=== PATIENT | male | born 1960 | race Caucasian/White ===

== ENCOUNTER → 2016-10-03 | Outpatient (CLI) | payer OTHER ==
--- NOTE | 2016-10-04 13:31 | RAD ---
EXAM DESCRIPTION: Hip,Left 2 Views left CLINICAL HISTORY: 56 years, Male, LEFT HIP PAIN COMPARISON: FINDINGS: Three views that demonstrate fracture or dislocation. Mild narrowing superolaterally with spurring. Surgical clips over the scrotal region. IMPRESSION: Mild degenerative change without fracture or dislocation Electronically signed by: Ciaran Arevalo MD 10/04/2016 1:30 PM CDT
--- NOTE | 2016-10-04 13:40 | RAD ---
EXAM DESCRIPTION: Hip,Right 2 Views CLINICAL HISTORY: 56 years, Male, RIGHT HIP PAIN COMPARISON: FINDINGS: Two views of the right hip do not show fracture or dislocation. Mild narrowing superolaterally with spurring. Some calcification at the greater trochanter may be due to bursitis IMPRESSION: Mild degenerative change without fracture or dislocation. Calcification at the greater trochanter may be due to bursitis Electronically signed by: Ciaran Arevalo MD 10/04/2016 1:38 PM CDT
== END ==
LOC: RAD 16:03
PROVIDERS: ATTEND Family Medicine
DX: M25.551 Pain in right hip (principal); M25.552 Pain in left hip

== ENCOUNTER → 2016-10-11 | Outpatient (CLI) | payer OTHER ==
--- NOTE | 2016-10-12 08:12 | MRI ---
Study: MRI of the Left Hip. Indication: PAIN Technique: Multiplanar, multi sequence MRI of the left hip was obtained without intravenous contrast. Comparison: None. FINDINGS: Free edge and undersurface tearing noted throughout the anterior superior left hip labrum. Areas of grade 2 and mild grade 3 chondral thinning throughout the left hip joint with minimal acetabular roof osteophyte formation. No full-thickness chondral defect. No acute fracture or osteonecrosis. Minimal pubic symphysis osteoarthritis. Mild lower lumbar disc disease. Tendinosis bilateral hamstring tendon origins. No high-grade pelvic tendon tear. Mild left greater trochanter bursal edema. IMPRESSION: Mild left hip osteoarthritis with suspected tearing of the anterior superior left hip labrum. Additional findings as detailed above. Electronically signed by: Jeremiah Rizzo MD 10/12/2016 8:10 AM CDT
== END | disposition home or self-care (01) ==
LOC: MRI 10:42
PROVIDERS: ATTEND Family Medicine
DX: M16.12 Unilateral primary osteoarthritis, left hip (principal)

== ENCOUNTER 2016-11-20 02:37 | Day surgery (SDC) | payer OTHER ==
[2016-11-20] MEDS ORDERED: LACTATED RINGERS 1,000 ML ONE (06:07)
[2016-11-20] MEDS ORDERED: LIDOCAINE 1% W/ EPINEPHRINE 20 ML VIAL INJ ONE (07:41)
[2016-11-20] MEDS ORDERED: BUPIVACAINE 0.25% INJ 30 ML VIAL INJ ONE (07:41)
[2016-11-20] MEDS ORDERED: methylPREDNISolone ACETATE 80 MG/ML VIAL ONE (07:42)
[2016-11-20 10:50] VITALS: O2SAT 97
[2016-11-20 11:24] VITALS: BP 127/73; TEMP 97.4
[2016-11-20] MEDS ORDERED: LIDOCAINE 1% 10 ML VIAL INJ ONE (12:00)
[2016-11-20] MEDS ORDERED: PROPOFOL 200 MG/20 ML VIAL IV ONE (12:00)
--- NOTE | 2016-11-28 08:55 | OP ---
DATE OF PROCEDURE: 11/20/16 PREOPERATIVE DIAGNOSIS: 1. Hip pain. 2. Acetabular labral tear. POSTOPERATIVE DIAGNOSIS: 1. Hip pain. 2. Acetabular labral tear. PROCEDURE: 1. Intraarticular injection. SURGEON: Bruce Vizcarra MD. MOBILE LOUNGE DRIVER: Diego Gaspar CST, SA-C. ANESTHESIA: Conscious sedation. COMPLICATIONS: None. FINDINGS: Normal appearing anatomy under fluoroscopy. INDICATION: The patient has a history of hip pain for which he has been trying conservative measures. He did have an MRI and the MRI revealed what appears to be a labral tear. Because of his ongoing pain, Mr. Castillo requested operative intervention. After discussing the risks, benefits and alternatives to operative intervention, the patient has given informed consent for that. PROCEDURE: The patient was brought to the Operating Room and placed in supine position. Conscious sedation was administered. The was hyperflexed, abducted and externally rotated. The hip joint was localized under fluoroscopic imaging and the groin was sterilely prepped with Betadine. After prepping and draping, the 18-gauge spinal needle was advanced into the joint. Once confirmation of placement had been made, a mixture of lidocaine and Depo-Medrol was injected. The needle was withdrawn. Pressure was held on the injection site. A sterile bandage was placed. The patient was then taken back to the Day Surgery Unit. POSTOPERATIVE INSTRUCTIONS: The patient will be weight-bearing as tolerated. The patient will followup with us in about ten days. #[id number] [facility]
== END 2016-11-20 11:00 | disposition home or self-care (01) ==
LOC: AMB 02:37
PROVIDERS: ATTEND Orthopaedic Surgery
DX: M25.552 Pain in left hip (principal); S73.192A Other sprain of left hip, initial encounter; I11.0 Hypertensive heart disease with heart failure; I50.9 Heart failure, unspecified; K21.9 Gastro-esophageal reflux disease without esophagitis; F32.9 Major depressive disorder, single episode, unspecified; Z88.8 Allergy status to other drugs, medicaments and biological substances; Z79.899 Other long term (current) drug therapy
CPT/HCPCS: 01200; 20610; 76000; J1030; J3490; J7120

== ENCOUNTER → 2016-11-28 | Outpatient (CLI) | payer OTHER ==
--- NOTE | 2016-11-30 10:06 | RAD ---
EXAM DESCRIPTION: Ankle,Right 3 Views CLINICAL HISTORY: 56 years,Male,PAIN IN RIGHT ANKLE AND JOINTS OF RIGHT FOOT COMPARISON: None FINDINGS: The right ankle demonstrates no fracture, dislocation, or other acute bony abnormalities. Ankle mortise and talar dome unremarkable. Soft tissues are unremarkable. Enthesophyte at Achilles attachment site IMPRESSION: Unremarkable ankle [] Electronically signed by: Nicolas Hilton MD 11/30/2016 10:04 AM CDT
== END | disposition home or self-care (01) ==
LOC: RAD 16:20
PROVIDERS: ATTEND Orthopaedic Surgery
DX: M25.572 Pain in left ankle and joints of left foot (principal)

== ENCOUNTER → 2016-12-31 | Outpatient (CLI) | payer OTHER ==
--- NOTE | 2017-01-02 08:57 | MRI ---
EXAM DESCRIPTION: MRI right ankle CLINICAL HISTORY: Osteochondral defect of the tibia. Multiple previous surgeries. Ankle pain and locking COMPARISON: None. TECHNIQUE: Multiplanar, multisequence MR images of the right ankle FINDINGS: Osteochondral lesion apex of the medial talar dome spans about 12 mm anteroposterior by 10 mm transverse. Overlying chondrosis with subchondral cortical irregularity and cystic change the depth of which is about 6 mm. No significant tibiotalar joint effusion, synovitis or intra-articular body. No osteochondral lesion subtalar, calcaneocuboid, talonavicular or navicular cuneiform Peroneus quartus variant inserting on the peroneus brevis tendon. Peroneus brevis tendinosis and interstitial fissuring from the retromalleolar fibula to the level of the peroneal tubercle. The distal tendon is attenuated. Peroneus longus tendinosis between the peroneal tubercle and cuboid. Small posterior tibial tendon sheath effusion with insertional tendinosis. Flexor digitorum and flexor hallux tendons are intact. Dorsiflexion tendons are intact. Normal Achilles tendon. Small distal dorsal calcaneal enthesophyte without edema. Plantar fascia intact Tibiofibular syndesmosis and ligaments are intact. Talofibular and calcaneofibular ligaments and deltoid ligament are intact. IMPRESSION: Chronic osteochondral lesion apex of the medial talar dome. Chondrosis with underlying subchondral cortical irregularity and cystic change. Measurements given above Peroneus brevis tendinosis and interstitial partial tear with attenuated distal tendon Electronically signed by: Landen Holt MD 01/02/2017 8:55 AM [employer]
== END | disposition home or self-care (01) ==
LOC: MRI 15:01
PROVIDERS: ATTEND Orthopaedic Surgery
DX: M21.861 Other specified acquired deformities of right lower leg (principal)

== ENCOUNTER → 2017-07-19 | Outpatient (CLI) | payer OTHER ==
--- NOTE | 2017-07-19 15:54 | US ---
EXAM DESCRIPTION: Abdomen,Complete CLINICAL HISTORY: 57 years Male, ABD PAIN COMPARISON: None available. TECHNIQUE: Multiple transverse and longitudinal static sonographic images of the upper abdomen were obtained. FINDINGS: Not well visualized due to overlying bowel gas. Visualized portions appear normal. The liver demonstrates increased echogenicity representing fatty infiltration versus parenchymal disease. No focal masses are identified sonographically. The gallbladder is adequately distended with sludge and small stones. No sonographic Branham's sign. No evidence of wall thickening or hyperemia or pericholecystic fluid. The common duct is nondilated and measures 5.4 mm. The right kidney measures 9.4 x 5.5 x 5.5 cm and the left kidney measures 8.9 x 5.2 x 5.7 cm. No hydronephrosis or perinephric fluid collections. The spleen measures 10.8 cm. The visualized abdominal aorta is nonaneurysmal and measures 1.7 cm in the proximal portion, 1.6 cm in the midportion and 1.7 cm in the distal portion. Visualized portions of the inferior vena cava appears normal. IMPRESSION: Hepatic steatosis versus parenchymal disease. Large amount of sludge and multiple gallstones are identified. No evidence of acute cholecystitis. Electronically signed by: Salome Velazquez MD 07/19/2017 3:53 PM CDT
== END ==
LOC: US 09:12
PROVIDERS: ATTEND Family Medicine
DX: R10.84 Generalized abdominal pain (principal); K76.0 Fatty (change of) liver, not elsewhere classified; K80.20 Calculus of gallbladder without cholecystitis without obstruction

== ENCOUNTER 2017-07-29 05:59 | Day surgery (SDC) | payer OTHER ==
--- NOTE | 2017-07-24 15:50 | RAD ---
EXAM DESCRIPTION: Chest,2 Views CLINICAL HISTORY: 57 years Male, PREOP COMPARISON: None available. TECHNIQUE: PA and lateral radiographs of the chest were obtained. FINDINGS: Trachea is midline.The cardiomediastinal silhouette is normal in size. The pulmonary vasculature is within normal limits. Lower lung volumes due to poor inspiratory effort. Bibasilar atelectasis is noted.No evidence of pleural effusions.No evidence of pneumothorax. IMPRESSION: Low lung volumes due to poor inspiratory effort. Bibasilar atelectasis. Electronically signed by: Salome Velazquez MD 07/24/2017 3:48 PM CDT
[2017-07-29] MEDS ORDERED: ceFAZolin SODIUM 1 GM VIAL ONE (07:16)
[2017-07-29] MEDS ORDERED: SODIUM CHL 0.9% 100ML MINI-BAG 100 ML IVPB ONE (07:16)
[2017-07-29] MEDS ORDERED: LACTATED RINGERS 1,000 ML ONE ×2 (07:16→08:10)
[2017-07-29] MEDS ORDERED: BUPIVACAINE 0.25% W/EPI 50 ML VIAL INJ ONE (07:19)
[2017-07-29] MEDS ORDERED: HEPARIN SODIUM (PORCINE) 10,000 UNITS/ML VIAL ONE (07:20)
[2017-07-29] MEDS ORDERED: ROCURONIUM BROMIDE 10 MG/ML VIAL ONE (08:08)
[2017-07-29] MEDS ORDERED: fentaNYL CITRATE INJ 50 MCG/ML AMP ONE (08:09)
[2017-07-29] MEDS ORDERED: MIDAZOLAM INJ 5 MG/5 ML VIAL ONE (08:09)
[2017-07-29] MEDS ORDERED: LIDOCAINE 2 % GEL 5 ML TUBE TOP ONE (08:09)
[2017-07-29] MEDS ORDERED: GLUCAGON INJ 1 MG VIAL ONE (09:14)
[2017-07-29] MEDS ORDERED: PROPOFOL 200 MG/20 ML VIAL IV ONE (10:00)
[2017-07-29] MEDS ORDERED: LIDOCAINE 1% 10 ML VIAL INJ ONE (10:00)
[2017-07-29] MEDS ORDERED: NEOSTIGMINE METHYLSULFATE 1 MG/ML ML IV ONE (10:00)
[2017-07-29] MEDS ORDERED: NITROGLYCERIN 2% 1 GM UD TOP ONE (10:00)
[2017-07-29] MEDS ORDERED: ATROPINE SULFATE 0.4 MG/ML 1ML VIAL IV ONE (10:00)
--- NOTE | 2017-07-29 11:12 | OP ---
DATE OF PROCEDURE: 07/29/17 PREOPERATIVE DIAGNOSIS: 1. Symptomatic cholelithiasis. 2. Hepatic steatosis. POSTOPERATIVE DIAGNOSIS: 1. Symptomatic cholelithiasis. 2. Hepatic steatosis. 3. Chronic cholecystitis. 4. Possible common bile duct obstruction. PROCEDURE: 1. Laparoscopic cholecystectomy with intraoperative cholangiography using fluoroscopy. 2. Wedge biopsy, right lobe of liver. SURGEON: Mario Garza MD. TRUCKER HAND: None. ANESTHESIA: Local infiltration of 0.25% Marcaine with epinephrine and general endotracheal anesthesia. INDICATION: The patient is a 57-year-old male with multiple episodes of right upper quadrant pain associated with fatty meals. He also had associated nausea and bloating with these attacks. He has ultrasound diagnosed cholelithiasis along with ultrasound suspicious for hepatic steatosis. He has a history of elevated liver functions in the past, but they are currently preoperatively within normal limits. FINDINGS: The gallbladder was intrahepatic. There was mild thickening of the gallbladder wall. There were multiple small stones and extremely thick bile. Intraoperative cholangiography revealed no filling defects, no obvious strictures and no dilation, however, the common bile duct did not drain into the duodenum even after a dose of glucagon. No other pathology was identified. DESCRIPTION OF PROCEDURE: After adequate general endotracheal anesthesia was obtained, the patient was prepped and draped in the usual sterile manner. Surgical time-out was taken. The infraumbilical area was infiltrated with local anesthesia. A curvilinear incision was fashioned and carried down through the subcutaneous tissue to the midline fascia. Traction sutures were placed on either side of the midline. A small incision was made in the midline fascia and the peritoneum was opened bluntly. Alexia trocar was introduced under direct vision into the abdominal cavity and fixed in place with the 20 mL balloon. CO2 was then insufflated until a pressure of 12 mmHg was reached and the abdomen was tympanitic in all four quadrants. When this was done, the laparoscope was introduced. The abdomen was inspected with the previously noted findings. The patient was then placed in reverse Trendelenburg position, turned to the left side. The upper abdominal ports were placed under direct vision. The gallbladder was grasped, retracted anteriorly and laterally. A small amount of adhesions to the neck of the gallbladder were taken down using blunt dissection and the desi hepatis was explored. The cystic duct was identified and isolated. The cystic duct was hemoclipped once proximally. A small incision was made in the cystic duct. The cholangiogram catheter was introduced through a separate stab wound in the right upper quadrant, introduced into the cystic duct and clipped in place. Cholangiograms were then taken using fluoroscopy which revealed the nondilated bile duct, a long cystic duct, no filling defects, strictures identified, but despite a dose of glucagon , the patient failed to drain his common duct. At this point, the cystic duct was hemoclipped three times distally and divided. The cystic artery was identified, clipped and divided, as were two other small branches of vessels which were clipped and divided. The gallbladder was then dissected free from the gallbladder bed of the liver with some difficulty due to it being an intrahepatic gallbladder. When this was done, the gallbladder was placed in an EndoCatch bag and removed from the infraumbilical port site in the usual manner under direct vision. When this was done, the gallbladder bed of the liver was inspected. Cautery was turned up from 30 to 50 on coag only and eventually hemostasis was obtained in the gallbladder bed of the liver. It was then irrigated with saline. When hemostasis was noted to be adequate there, wedge biopsy of the right lobe of the liver was taken just lateral to the falciform ligament. The specimen was taken with sharp scissors, removed from the umbilical port site and hemostasis was obtained with electrocautery at 50. When this was done, the upper abdomen was irrigated copiously with saline. The effluent was noted to be clear. The desi hepatis was inspected and no bleeding or bile leak was identified. The gallbladder bed of the liver and biopsy site were both noted to have good hemostasis. The upper abdominal ports were removed under direct vision and adequate hemostasis was noted. At this point, the CO2, the laparoscope and the infraumbilical port were removed. The infraumbilical port site fascia was approximated with a single [id number] suture of 0 Vicryl. Subcutaneous tissue was irrigated with saline. Skin edges were approximated with skin richie. Sterile dressings were applied. The patient was awakened and taken to the Recovery Room in stable condition. The GI service in [place] will be contacted about a plan, likely just observation with noted normal liver function testing and only small stones on the gallbladder ultrasound. Estimated blood loss was approximately 100 mL. All sponge, needle and instrument counts were correct. #[id number] [facility]
[2017-07-29] MEDS: MORPHINE SULFATE INJ 10 MG/ML VIAL ONE ×2 (11:15→11:30)
[2017-07-29] MEDS ORDERED: HYDROcodone 5MG/APAP 325MG 1 EA TAB ONE (12:24)
[2017-07-29] MEDS ORDERED: HYDROcodone 5MG/APAP 325MG 1 EA TAB PO ONE (12:25)
[2017-07-29] MEDS ORDERED: ONDANSETRON INJ 4 MG/2 ML VIAL ONE (13:37)
[2017-07-29] MEDS ORDERED: HYDROmorphone HCL INJ 2 MG/ML VIAL ONE (13:40)
[2017-07-29 15:05] VITALS: BP 143/75; TEMP 97.7; O2SAT 96
== END 2017-07-29 15:00 | disposition home or self-care (01) ==
LOC: AMB 05:59
PROVIDERS: ATTEND Surgery
DX: K80.10 Calculus of gallbladder with chronic cholecystitis without obstruction (principal); K76.0 Fatty (change of) liver, not elsewhere classified; I10 Essential (primary) hypertension; K21.9 Gastro-esophageal reflux disease without esophagitis; G47.30 Sleep apnea, unspecified; Z79.899 Other long term (current) drug therapy; Z88.1 Allergy status to other antibiotic agents
CPT/HCPCS: 00790; 36415; 47379; 47563; 71046; 76000; 80053; 81001; 85025; 93005; J0690; J1170; J1610; J1644; J2250; J2270; J2405; J2710; J3010; J3490; J7050; J7120

== ENCOUNTER → 2017-07-30 | Outpatient (CLI) | payer OTHER | LOC: LAB.O 08:57 | PROVIDERS: ATTEND Surgery | DX: K80.10 Calculus of gallbladder with chronic cholecystitis without obstruction (principal) ==

== ENCOUNTER → 2018-01-20 | Outpatient (CLI) | payer OTHER ==
--- NOTE | 2018-01-20 10:02 | RAD ---
EXAM DESCRIPTION: Shoulder,Left 2 or More Views CLINICAL HISTORY: 57 years Male, M25.511 COMPARISON: None. FINDINGS: Four views of the left shoulder show no acute fracture or malalignment. Mild glenohumeral joint space narrowing is noted with a tiny osteophyte arising from the inferior margin of the glenoid. There are mild degenerative changes in the left AC joint without significant undersurface spurring. There is a punctate calcification in the soft tissues lateral to the greater tuberosity which suggests the possibility of calcific tendinitis. IMPRESSION: Mild degenerative changes in the left AC and glenohumeral joints without acute left shoulder abnormality. Possible calcific tendinitis involving the distal supraspinatus tendon. If clinically suspicious of rotator cuff pathology, MRI should be considered. Electronically signed by: Carlos Osorio MD 01/20/2018 10:01 AM [facility]
== END ==
LOC: RAD 08:00
PROVIDERS: ATTEND Orthopaedic Surgery
DX: M25.512 Pain in left shoulder (principal); M12.812 Other specific arthropathies, not elsewhere classified, left shoulder

== ENCOUNTER → 2020-02-01 | Outpatient (CLI) | payer OTHER | LOC: ECHO 13:08 | PROVIDERS: ATTEND Family Medicine | DX: I51.7 Cardiomegaly (principal) ==